=== PATIENT | male | born 1950 | race Hispanic/Latino ===

== ENCOUNTER 2016-09-24 15:43 | Outpatient (CLI) | payer OTHER ==
[2016-09-24 16:37] LABS: Hemoglobin A1c 5.8 % (4.0-6.0)
== END 2016-09-24 15:44 | disposition home or self-care (01) ==
LOC: NAVSJIPCSP 15:43
PROVIDERS: ATTEND Internal Medicine
DX: E78.5 Hyperlipidemia, unspecified (principal); E11.59 Type 2 diabetes mellitus with other circulatory complications
CPT/HCPCS: 80061; 83036

== ENCOUNTER 2016-12-17 08:52 | Outpatient (CLI) | payer OTHER ==
[2016-12-17 15:07] LABS: Hemoglobin A1c 5.9 % (4.0-6.0)
[2016-12-17 15:39] LABS: Cardiac Risk 7.1 (Less than 4.5)
== END 2016-12-17 08:53 ==
LOC: NAVSJIPCSP 08:52
PROVIDERS: ATTEND Internal Medicine
DX: E78.5 Hyperlipidemia, unspecified (principal); E11.59 Type 2 diabetes mellitus with other circulatory complications
CPT/HCPCS: 80061; 83036

== ENCOUNTER 2017-03-24 09:09 | Outpatient (CLI) | payer OTHER ==
[2017-03-24 11:42] LABS: Cardiac Risk 7.6 (Less than 4.5); Cholesterol 275 mg/dl (< 200 Desired); HDL Cholesterol 36 mg/dL (>60 Neg Risk); Triglycerides 438 mg/dL (Less than 150)
== END 2017-03-24 09:10 | disposition home or self-care (01) ==
LOC: NAVSJIPCSP 09:09
PROVIDERS: ATTEND Internal Medicine
DX: E78.5 Hyperlipidemia, unspecified (principal); E11.59 Type 2 diabetes mellitus with other circulatory complications; Z79.899 Other long term (current) drug therapy
CPT/HCPCS: 36415; 80061; 83036

== ENCOUNTER 2018-05-13 07:54 | Emergency (ER) | payer MEDICARE ==
[2018-05-13] MEDS ORDERED: Sodium Chloride 0.9% 1,000 ML ONE (08:51)
[2018-05-13] MEDS ORDERED: Ondansetron HCl/PF 4 MG/2 ML Vial ONE (08:51)
[2018-05-13 08:52] LABS: Bilirubin Negative (Negative); Blood, Urine Negative (Negative); Clarity Clear (Clear); Glucose, Urine (Dipstick) Negative (Negative); Leukocyte Negative (Negative); Nitrite Negative (Negative); Protein, Urine (Dipstick) Negative (Neg-Trace); Specific Gravity, Urine 1.025 (1.005-1.030); Urobilinogen 0.2 mg/dL (0.2-1.0)
[2018-05-13 09:10] LABS: ALT (SGPT) 27 U/L (8-55); AST (SGOT) 20 U/L (5-34); Albumin 3.9 g/dL (3.4-4.8); Alkaline Phosphatase 48 U/L (40-150); Anion Gap 15 mmol/L (10-20); BUN (Urea Nitrogen) 13 mg/dL (8.4-25.7); Bilirubin, Total 0.5 mg/dL (0.2-1.2); Calc. Creatinine Clearance 0 mL/min (70-130); Calcium 9.2 mg/dL (7.8-10.44); Carbon Dioxide 22 mmol/L (23-31); Chloride 103 mmol/L (98-107); Estimated GFR-MDRD Greater than 90; Glucose 166 mg/dL (80-115); Protein, Total 6.9 g/dL (5.8-8.1); Sodium 136 mmol/L (136-145)
[2018-05-13 09:25] LABS: Hemoglobin 16.1 g/dL (14.0-18.0); Mean Corpuscular HGB CONC 33.3 g/dL (32.0-36.0); Mean Corpuscular Hemoglobin 31.9 pg (27.0-31.0); Mean Platelet Volume 6.6 fL (7.4-10.4); Platelet Count 462 thou/uL (130-400); RBC Distribution Width 11.8 % (11.5-14.5); Red Blood Cell (RBC) Count 5.04 mill/uL (4.70-6.10)
[2018-05-13 09:39] LABS: Eosinophils 1 % (0-10); Lymphocytes 18 % (21-51); MDiff Complete? YES; Monocytes 7 % (0-10); Neutrophil 74 % (42-75); PLT Morphology Comment Appears Adequate
[2018-05-13 09:49] LABS: Lipase 14 U/L (8-78)
[2018-05-13] MEDS ORDERED: Ketorolac Tromethamine 30 MG/ML VIAL ONE (10:33)
--- NOTE | 2018-05-13 10:47 | CT ---
CT ABDOMEN AND PELVIS WITH IV CONTRAST: HISTORY: A 68-year-old male with a history of epigastric abdominal pain with vomiting. COMPARISON: 02/19/2011 FINDINGS: The lung bases show no significant acute process. There are several very small, less than 0.4 cm, ri ght-sided, pleural-based nodules. The liver, gallbladder, pancreas, and adrenal glands are unremarka ble. Evidence for prior splenectomy. The adrenal glands are unremarkable. No renal calculus or acu te obstruction. There is some moderate fluid throughout an up to borderline sized small bowel, wi th what appears to be some subtle, nonspecific small bowel wall thickening and enhancement, possibly some type of nonspecific enteritis. No obstructing calculus. No CT evidence for acute appendiciti s. No abscess, adenopathy, or abnormal fluid collection within the abdomen or pelvis. Right inguina l fat-containing hernia. IMPRESSION: 1. Some nonspecific fluid throughout normal and borderline enlarged small bowel loops with some mini mal patchy small bowel wall when, nonspecific, possibly representing some nonspecific enteritis. 2. Right fat-containing inguinal hernia. 3. Several very small, circumscribed, pleural-based nodules in the right lower chest. POS: [facility]
== END 2018-05-13 11:40 | disposition home or self-care (01) ==
LOC: NAV ERS 07:54
DX: K52.9 Noninfective gastroenteritis and colitis, unspecified (principal); I10 Essential (primary) hypertension
CPT/HCPCS: 74177; 80053; 81003; 83690; 85025; 93005; 96361; 96372; 96374; 96375; J1885; J2270; J2405; J7050

== ENCOUNTER 2018-06-20 13:10 | Emergency (ER) | payer MEDICARE | END 2018-06-20 13:48 | disposition home or self-care (01) | LOC: NAV ERS 13:10 | DX: S50.12XA Contusion of left forearm, initial encounter (principal); E11.9 Type 2 diabetes mellitus without complications; I25.10 Atherosclerotic heart disease of native coronary artery without angina pectoris; W22.03XA Walked into furniture, initial encounter | CPT/HCPCS: 99283 ==